=== PATIENT | female | born 1955 | race Two or more races ===

== ENCOUNTER 2018-03-12 14:31 | Emergency (ER) | payer MEDICAID ==
[~2018-03-12] VITALS: Ht 154.9 cm; Wt 66.7 kg
[2018-03-12 14:42] VITALS: Ht 154.9 cm; Wt 66.7 kg
[2018-03-12 15:21] LABS: BASOPHIL % 0.6 % (0-2); PLATELET COUNT 283 x10^3mcL (130-400); RED CELL DISTRIBUTION WIDTH 13.5 % (11.5-14.5)
[2018-03-12 15:34] LABS: CALCIUM 8.8 mg/dL (8.5-10.1); CARBON DIOXIDE 30.7 mmol/L (21-32); CHLORIDE SERUM 105 mmol/L (98-107); CREATININE SERUM 0.7 mg/dL (0.6-1.0); GFR1 > 60 mL/min; GLUCOSE SERUM 88 mg/dL (74-106); POTASSIUM SERUM 3.8 mmol/L (3.5-5.1); SODIUM SERUM 141 mmol/L (136-145)
[2018-03-12 15:45] LABS: ALBUMIN 3.5 g/dL (3.4-5.0); ALKALINE PHOSPHATASE 93 U/L (46-116); ALT/SGPT 27 U/L (14-59); AMYLASE 54 U/L (25-115); AST/SGOT 23 U/L (15-37); BILIRUBIN TOTAL 0.5 mg/dL (0.20-1.00); CHOLESTEROL 192 mg/dL (<200); LIPASE 183 IU/L (73-393); T4(THYROXINE) 7.2 ug/dL (4.7-13.3); TOTAL PROTEIN, SERUM 7.2 g/dL (6.4-8.2)
[2018-03-12 20:08] LABS: microscopic required? YES; urine erythrocyte TRACE (NEGATIVE)
[2018-03-12 20:12] LABS: AMPHETAMINE QUAL UR NONE DETECTED (NEG <=1000)
[2018-03-12 20:14] VITALS: BP 153/82
== END 2018-03-12 20:14 | disposition home or self-care (01) ==
LOC: ED 14:31
PROVIDERS: Emergency Medicine
DX: J98.01 Acute bronchospasm (principal); M06.9 Rheumatoid arthritis, unspecified; Z72.0 Tobacco use
CPT/HCPCS: 36600; 83880; 94150; J1885; J2930; J7030; J7613; J7644